=== PATIENT | male | born 1975 | race Caucasian/White ===

== ENCOUNTER 2016-08-01 14:58 | Outpatient (CLI) | payer OTHER | END 2016-08-01 14:59 | disposition home or self-care (01) | DX: Z13.9 Encounter for screening, unspecified (principal); Z13.89 Encounter for screening for other disorder; Z13.0 Encounter for screening for diseases of the blood and blood-forming organs and certain disorders involving the immune mechanism ==

== ENCOUNTER 2016-08-10 14:48 | Outpatient (CLI) | payer OTHER | END 2016-08-10 14:49 | disposition home or self-care (01) | DX: S83.242A Other tear of medial meniscus, current injury, left knee, initial encounter (principal); M23.92 Unspecified internal derangement of left knee ==

== ENCOUNTER 2018-04-11 12:42 | Day surgery (SDC) | payer OTHER ==
[2018-04-11] MEDS ORDERED: LACTATED RINGERS 1,000 ML IV ONE (13:47)
--- NOTE | 2018-04-11 14:25 | ANESTHESIA ---
Pre-Anesthesia VS, & Labs - Diagnosis Chronic diarrhea - Procedure Colonscopy Vital Signs: Temp Pulse Resp BP Pulse Ox 36.9 C 63 18 135/91 H 98 04/11/18 13:30 04/11/18 13:30 04/11/18 13:30 04/11/18 13:30 04/11/18 13:30 Height 6 ft 1 in Weight (kg) 96.5 kg - NPO >8 hours - Lab Results Lab results reviewed: No Home Medications and Allergies Allergies/Adverse Reactions: Allergies Allergy/AdvReac Type Severity Reaction Status Date / Time No Known Drug Allergies Allergy Verified 04/10/18 13:47 Anes History & Medical History - Anesthetic History Anesthesia Complications: reports: No previous complications Family history of Anesthesia Complications: Denies Family history of Malignant Hyperthermia: Denies - Medical History Cardiovascular: reports: None Pulmonary: reports: None, Asthma Gastrointestinal: reports: None Urinary: reports: None Neuro: reports: None Musculoskeletal: reports: None Endocrine/Autoimmune: reports: None Blood Disorders: reports: None Skin: reports: None Smoking Status: Current some day smoker (30 pack year history) Psychosocial: reports: No issues indicated - Surgical History Orthopedic: ACL reconstruction Exam General: Alert, Oriented x3 Dental: Other (some missing) Mouth Opening: Greater than 4 Fingerbreadths Neck Mobility: Normal Mallampati classification: I Thyromental Distance: greater than 6 cm Respiratory: Lungs clear Cardiovascular: Regular rate, No murmurs Neurological: Normal speech Mental/Cognitive Status: Alert/Oriented X3, Normal for patient Cognitive Status: Within normal limits Plan Anesthesia Type: Total IV Consent for Procedure(s) Verified and Reviewed: Yes Code Status: Attempt Resuscitation ASA classification: 2-Mild systemic disease Is this case an emergency?: No
[2018-04-11] MEDS ORDERED: LIDOCAINE-MPF 2% 5 ML VIAL IM ONE (15:05)
[2018-04-11] MEDS ORDERED: MIDAZOLAM 2 MG/2 ML VIAL IVP ONE (15:05)
[2018-04-11] MEDS ORDERED: PROPOFOL 1000 MG/100 ML IV ONE (15:05)
[2018-04-11 15:45] VITALS: BP 120/86
== END 2018-04-11 12:43 | disposition home or self-care (01) ==
LOC: SDS 12:42
PROVIDERS: ATTEND Internal Medicine Gastroenterology
PROC: 0DBF8ZX Excision of Right Large Intestine, Via Natural or Artificial Opening Endoscopic, Diagnostic (ICD-10-PCS; 2018-04-11)
PROC: 0DBG8ZX Excision of Left Large Intestine, Via Natural or Artificial Opening Endoscopic, Diagnostic (ICD-10-PCS; principal; 2018-04-11 14:45)
DX: K52.9 Noninfective gastroenteritis and colitis, unspecified (principal); F10.20 Alcohol dependence, uncomplicated; I10 Essential (primary) hypertension; J45.909 Unspecified asthma, uncomplicated; E66.9 Obesity, unspecified; F17.210 Nicotine dependence, cigarettes, uncomplicated; Z68.30 Body mass index [BMI] 30.0-30.9, adult; Z83.71 Family history of colonic polyps
CPT/HCPCS: 45380; J7120

== ENCOUNTER 2018-05-09 15:21 | Outpatient (CLI) | payer OTHER | END 2018-05-09 15:22 | disposition home or self-care (01) | LOC: LAB.F 15:21 | PROVIDERS: ATTEND Internal Medicine Gastroenterology | DX: K52.9 Noninfective gastroenteritis and colitis, unspecified (principal) | CPT/HCPCS: 36415; 82784; 83516 ==

== ENCOUNTER 2018-06-02 09:51 | Emergency (ER) | payer OTHER ==
[2018-06-02] MEDS ORDERED: DEXAMETHASONE 10 MG/ML VIAL PO STA (10:37)
[2018-06-02] MEDS ORDERED: KETOROLAC 60 MG/2 ML VIAL IM STA (10:38)
--- NOTE | 2018-06-02 10:40 | ED Physician Documentation ---
PD HPI BACK PAIN - Stated complaint Stated Complaint: LEFT LEG/HIP/ANKLE PX - Chief complaint Chief Complaint: Ext Problem - History obtained from History obtained from: Patient - History of Present Illness Timing - onset: Yesterday Timing - duration: Days (1) Timing - details: Abrupt onset, Still present Location: Lower, Left Quality: Pain, Spasm, Sharp, Similar to prior episodes Associated symptoms: Numbness. 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 The patient states that he has had a problem with his sciatica on and off as he has done this work long-term. He has been having a problem with his sciatica for the past week and yesterday when he was doing a transfer here a pop in his back and since that time he has had severe specific pain in the left lower back with pain radiating down the left leg. Review of Systems Constitutional: reports: Fatigue. denies: Fever, Chills Ears: denies: Ear pain Throat: denies: Sore throat Cardiac: denies: Palpitations Respiratory: denies: Cough : denies: Dysuria Skin: denies: Rash Musculoskeletal: reports: Back pain Neurologic: reports: Numbness. denies: Generalized weakness, Focal weakness PD PAST MEDICAL HISTORY - Past Medical History Cardiovascular: None Respiratory: None, Asthma Neuro: None Endocrine/Autoimmune: None GI: None : None HEENT: None Psych: None Musculoskeletal: None Derm: None - Past Surgical History Past Surgical History: Yes Ortho: ACL reconstruction, Other - Present Medications Home Medications: Ambulatory Orders Medication Instructions Recorded Confirmed Cyclobenzaprine [Flexeril] 10 mg PO TID PRN #20 tablet 06/02/18 Hydrocodone/Acetaminophen 1 - 2 each PO Q6H PRN #14 tablet 06/02/18 [Hydrocodon-Acetaminophen 5-325] - Allergies Allergies/Adverse Reactions: Allergies Allergy/AdvReac Type Severity Reaction Status Date / Time bee venom protein (honey bee) Allergy Anaphylaxis Verified 06/02/18 10:00 - Social History Does the pt smoke?: Yes Smoking Status: Current every day smoker Does the pt drink ETOH?: Yes ETOH Use: Beer Does the pt have substance abuse?: No - Immunizations Immunizations are current?: Yes PD ED PE NORMAL - Vitals Vital signs reviewed: Yes (hypertensive ) - General General: Alert and oriented X 3, No acute distress, Well developed/nourished - HEENT HEENT: Atraumatic, PERRL, EOMI - Respiratory Respiratory: No respiratory distress - Back Back: No CVA TTP, No spinal TTP, Other (There is paraspinous muscle tenderness to the lower lumbar spine on the left lower side extending into the sicatic notch. ) - Derm Derm: Normal color, Warm and dry, No rash - Extremities Extremities: No deformity, No edema - Neuro Neuro: Alert and oriented X 3, paper machine tender 2-12 intact, No motor deficit, Normal speech, Other (There is subjective numbness to the lateral plantar aspect of the left foot. ) Eye Opening: Spontaneous Motor: Obeys Commands Verbal: Oriented GCS Score: 15 - Psych Psych: Normal mood, Normal affect Results - Vitals Vitals: Vital Signs - 24 hr 06/02/18 09:57 Temperature 36.5 C Heart Rate 100 Respiratory 18 Rate Blood Pressure 139/90 H O2 Saturation 99 Oxygen O2 Source Room air PD MEDICAL DECISION MAKING - ED course Complexity details: considered differential, d/w patient ED course: 42-year-old male who works as a caregiver has acute sciatica. He is administered Dexamethasone 10 mg and Toradol 60mg IM. We will place him on some pain medication and muscle relaxant. Departure - Departure Disposition: 01 Home, Self Care Clinical Impression: Sciatica Qualifiers: Laterality: left Qualified Code(s): M54.32 - Sciatica, left side Condition: Stable Instructions: ED Sciatica Follow-Up: Sixto Enrique MD [Primary Care Provider] - Prescriptions: Cyclobenzaprine [Flexeril] 10 mg PO TID PRN #20 tablet PRN Reason: Spasms Hydrocodone/Acetaminophen [Hydrocodon-Acetaminophen 5-325] 1 - 2 each PO Q6H PRN #14 tablet PRN Reason: pain Forms: Activity restrictions
[2018-06-02] MEDS ORDERED: CHERRY SYRUP 10 ML UDC PO ONE (10:52)
[2018-06-02 11:21] VITALS: BP 138/98
== END 2018-06-02 11:21 | disposition home or self-care (01) ==
LOC: ED 09:51
DX: M54.32 Sciatica, left side (principal); F17.200 Nicotine dependence, unspecified, uncomplicated; X50.1XXA Overexertion from prolonged static or awkward postures, initial encounter; Y93.F2 Activity, caregiving, lifting; Y99.0 Civilian activity done for income or pay
CPT/HCPCS: 1040M; 96372; 99283; A9270

== ENCOUNTER 2018-06-03 13:55 | Emergency (ER) | payer OTHER ==
--- NOTE | 2018-06-03 14:58 | ED Physician Documentation ---
PD HPI BACK PAIN - Stated complaint Stated Complaint: LOW BACK PX - Chief complaint Chief Complaint: Back Pain - History obtained from History obtained from: Patient - History of Present Illness Timing - onset: How many days ago (few) Timing - duration: Days (history of low back pain with radiation to left leg. This has been worse for few days without particular new injury.) Timing - details: Gradual onset, Still present Location: Lower, Left Quality: Pain, Spasm Associated symptoms: Numbness (at times left anterolateral lower leg and lateral foot), Incontinent of urine. 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 Has had increased back pain due to that. He says there are not other caregivers to work with this person, so he is having to continue the heavy back work.). No: Trauma Similar symptoms before: Diagnosis (disc problem with sciatic. Has not had recent back imaging nor specialist eval. Has had rn acute care in the past.) Recently seen: Emergency Dept (given Rx for some pain meds and muscle relaxants which he says are not helping with the pain. Did not get much improvement with the Toradol last evening.) Review of Systems Constitutional: denies: Fever, Myalgias Nose: denies: Rhinorrhea / runny nose, Congestion Throat: denies: Sore throat Respiratory: denies: Cough : denies: Incontinent Musculoskeletal: reports: Back pain. denies: Neck pain Neurologic: denies: Generalized weakness, Focal weakness PD PAST MEDICAL HISTORY - Past Medical History Cardiovascular: None Respiratory: None, Asthma Neuro: None Endocrine/Autoimmune: None GI: None : None HEENT: None Psych: None Musculoskeletal: None Derm: None - Past Surgical History Past Surgical History: Yes Ortho: ACL reconstruction, Other - Present Medications Home Medications: Ambulatory Orders Medication Instructions Recorded Confirmed Cyclobenzaprine [Flexeril] 10 mg PO TID PRN #20 tablet 06/02/18 Hydrocodone/Acetaminophen 1 - 2 each PO Q6H PRN #14 tablet 06/02/18 [Hydrocodon-Acetaminophen 5-325] Dexamethasone [Decadron] 4 mg PO DAILY #5 tablet 01/28/19 Naproxen 500 mg PO BID #20 tablet 06/03/18 Oxycodone HCl/Acetaminophen 1 each PO Q6H PRN #25 tablet 06/03/18 [Percocet 7.5-325 mg Tablet] diazePAM [Diazepam] 5 mg PO TID PRN #20 tablet 06/03/18 - Allergies Allergies/Adverse Reactions: Allergies Allergy/AdvReac Type Severity Reaction Status Date / Time bee venom protein (honey bee) Allergy Anaphylaxis Verified 06/03/18 14:07 - Social History Does the pt smoke?: Yes Smoking Status: Current every day smoker Does the pt drink ETOH?: Yes Does the pt have substance abuse?: No - Immunizations Immunizations are current?: Yes PD ED PE NORMAL - Vitals Vital signs reviewed: Yes - General General: Alert and oriented X 3, Well developed/nourished, Other (appears in pain, guarded ROM of the back. ) - Cardiac Cardiac: RRR, No murmur - Respiratory Respiratory: Clear bilaterally - Abdomen Abdomen: Soft, Non tender - Back Back: No spinal TTP - Derm Derm: Normal color, Warm and dry, No rash - Extremities Extremities: Other (tender lateral lumbar area muscles without deformity. ) - Neuro Neuro: Alert and oriented X 3, No motor deficit, No sensory deficit, Normal speech, Other (normal knee reflexes. ) Results - Vitals Vitals: Vital Signs - 24 hr 06/03/18 06/03/18 14:05 16:19 Temperature 36.8 C 37.1 C Heart Rate 99 73 Respiratory 16 16 Rate Blood Pressure 137/87 H 133/87 H O2 Saturation 97 98 Oxygen O2 Source Room air PD MEDICAL DECISION MAKING - ED course Complexity details: considered differential (no red flags - has prior sciatic radiation of pain and is currently worse than usual. ), d/w patient Departure - Departure Disposition: Home, Self Care Clinical Impression: Low back pain Qualifiers: Chronicity: acute Back pain laterality: left Sciatica presence: with sciatica Sciatica laterality: sciatica of left side Qualified Code(s): M54.42 - Lumbago with sciatica, left side Condition: Stable Record reviewed to determine appropriate education?: Yes Instructions: ED Sprain Strain Lumbar, ED Sciatica Follow-Up: Sixto Enrique MD [Primary Care Provider] - [facility] [Provider Group] Prescriptions: Dexamethasone [Decadron] 4 mg PO DAILY #5 tablet diazePAM [Diazepam] 5 mg PO TID PRN #20 tablet PRN Reason: Spasms Naproxen 500 mg PO BID #20 tablet Oxycodone HCl/Acetaminophen [Percocet 7.5-325 mg Tablet] 1 each PO Q6H PRN #25 tablet PRN Reason: Pain Comments: Heat and gentle stretching and range of motion. Naproxen twice daily anti- inflammatory. Decadron steroid anti-inflammatory daily for 5 more days. He can use stronger medications of Percocet for pain and diazepam for spasms over the next several days to week. Consider adding physical modalities such as chiropractic or physical therapy. Check with the chiropractors to see if they accept L&I reimbursement. Commonly they do. You need to start physical therapy initiated through your primary care or orthopedics as it generally is not accepted from the ER. Have a day or 2 of work if you can although limited lifting and range of motion as allowable. Forms: Activity restrictions Discharge Date/Time: 06/03/18 16:27
[2018-06-03] MEDS ORDERED: HYDROmorphone 1 MG/ML CARPUJECT IM STA (15:16)
[2018-06-03] MEDS ORDERED: IBUPROFEN 600 MG TABLET PO STA (15:16)
[2018-06-03] MEDS ORDERED: diazePAM 5 MG TABLET PO STA (15:16)
[2018-06-03 16:21] VITALS: BP 133/87
== END 2018-06-03 16:27 | disposition home or self-care (01) ==
LOC: ED 13:55
DX: M54.42 Lumbago with sciatica, left side (principal); X50.1XXA Overexertion from prolonged static or awkward postures, initial encounter; X50.0XXA Overexertion from strenuous movement or load, initial encounter; Y93.F2 Activity, caregiving, lifting; Y99.0 Civilian activity done for income or pay; F17.200 Nicotine dependence, unspecified, uncomplicated
CPT/HCPCS: 96372; 99283; A9270; J1170

== ENCOUNTER 2021-09-21 15:08 | Outpatient (CLI) | payer OTHER ==
[2021-09-21 16:02] VITALS: BP 123/79
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
== END 2021-09-21 15:09 | disposition home or self-care (01) ==
LOC: SC 15:08
PROVIDERS: ATTEND Nurse Practitioner Family
DX: R06.81 Apnea, not elsewhere classified (principal); R06.83 Snoring; G47.8 Other sleep disorders; R41.89 Other symptoms and signs involving cognitive functions and awareness; E66.9 Obesity, unspecified; Z68.30 Body mass index [BMI] 30.0-30.9, adult
CPT/HCPCS: 99203; 99212

== ENCOUNTER 2021-10-10 20:19 | Outpatient (CLI) | payer OTHER | END 2021-10-10 20:20 | disposition home or self-care (01) | LOC: SC 20:19 | PROVIDERS: ATTEND Nurse Practitioner Family | DX: G47.33 Obstructive sleep apnea (adult) (pediatric) (principal); G47.61 Periodic limb movement disorder | CPT/HCPCS: 95810 ==

== ENCOUNTER 2021-10-31 14:57 | Outpatient (CLI) | payer OTHER ==
[2021-10-31 23:22] VITALS: BP 131/84
--- NOTE | 2021-10-31 23:22 | SLEEP CARE CONSULTATION ---
Information from patient questionnaire entered by Payton San MA. I have reviewed and concur with the information entered by Payton San MA. This document represents the service I personally performed and the decisions made by me, Mayo Fleming MD, [facility]. History of Present Illness Service Date and Time: 10/31/2021 1457 Initial [place] Sleepiness Scale score: 20 (09/2021) Additional HPI information: Mr. Sims returned for follow up of the sleep study he had on 10-10-21. The polysomnography showed that the patient had reduced sleep efficiency due to frequent awakenings after the sleep onset. The sleep architecture was abnormal for sleep fragmentation and reduced amount of time spent in REM sleep. Respiratory monitoring showed mild obstructive sleep apnea-hypopnea (AHI = 6.2) associated with frequent arousals, oxyhemoglobin desaturation and mild hypoxia (kapil oxygen saturation of 81%). The respiratory events occurred independently of sleep stage and body position (supine AHI = 4.5; non-supine = 8.26). Snore was light to moderate in intensity. There was moderate periodic leg movement of sleep not contributing to the sleep fragmentation. Cardiac rhythm was normal sinus rhythm without significant arrhythmia. No abnormal behavior (parasomnia) observed during the night. The patient was informed of these findings. I explained to him the pathophysiology behind obstructive sleep apnea. We then spent quite a bit of time discussing different treatment options. For mild obstructive sleep apnea, surgery and oral appliance are alternatives to nasal CPAP therapy but in moderate or severe cases, nasal CPAP is the most effective and reliable treatment. Weight loss in an obese individual is strongly recommended. After some discussion, he opted to go with the nasal CPAP therapy. I explained to him how CPAP machine works and what to expect when using the machine. He is encouraged to use CPAP every night especially in the first 2 to 3 nights in order to get used to it. He should call his CPAP supplier or me to discuss any mechanical problem that may occur. If he snores or feels like he is not getting enough air from the machine, he should notify me and I will increase the pressure. Sleep Study - Results Type of Sleep Study: Polysomnography (F/U POLY, 10/10/2021 [facility], POS,) Prior sleep studies: No Allergies and Home Medications Drug allergies reviewed: Yes Home medication list reviewed: Yes Allergy and home medication list: Allergies bee venom protein (honey bee) Allergy (Verified 06/03/18 14:07) Anaphylaxis Review of Systems Review of systems same as previous: Yes Physical Exam Vital signs obtained and entered by: SHEREEN SANTIAGO Blood Pressure: 131/84 (RESP 22, PULSE 96, LEFT,) Heart Rate: 94 O2 Saturation: 99 (PAPER MASK) Height: 6 ft 1 in Weight: 230 lb (CLOTHE) Body Mass Index: 30.3 BMI Classification: Obese Impression and Plan IMPRESSION: 1. Obstructive Sleep Apnea-Hypopnea Syndrome, mild, associated with mild hypoxemia and sleep fragmentation. Possibly, this is the cause of the patients symptoms of unrefreshed sleep, and excessive daytime sleepiness. As mentioned above, the patient will be started on autoCPAP set between 5 and 15 cmH2O. Depending on his response and compliance he may be brought back for an o vernight CPAP titration study. PLAN: 1. Prescription made for an autoCPAP, heated humidifier, and related supplies. 2. Return for follow up after one month of using the CPAP. Prescriptions: Auto CPAP Follow up with Sleep Care in: 1-2 months Visit Type: In Office Time Spent with Patient (minutes): 15 Provider Statement: I spent 100% of the Face to Face Visit with the patient with greater than 50% spent counseling the patient and coordination of care.
== END 2021-10-31 14:58 | disposition home or self-care (01) ==
LOC: SC 14:57
PROVIDERS: ATTEND Internal Medicine Pulmonary Disease
DX: G47.33 Obstructive sleep apnea (adult) (pediatric) (principal); E66.9 Obesity, unspecified; Z68.30 Body mass index [BMI] 30.0-30.9, adult
CPT/HCPCS: 99212

== ENCOUNTER 2022-02-14 14:44 | Outpatient (CLI) | payer MEDICAID, OTHER ==
--- NOTE | 2022-02-14 17:44 | XRAY Report ---
PROCEDURE: Shoulder 2 View LT INDICATIONS: L SHOULDER PX TECHNIQUE: 2 views of the shoulder were acquired. COMPARISON: None. FINDINGS: Bones: There is separation of the acromioclavicular joint measuring up to 8.6 mm. No significant elev ation of the distal clavicle. Moderate glenohumeral joint space loss. There is slight flattening of t he glenoid fossa. Apparent mild superior subluxation of the humeral head in the glenoid fossa on the given images. No suspicious bony lesions. Visualized ribs appear intact. Soft tissues: Small calcification is seen immediately inferior to the glenoid fossa measuring about 4 mm. IMPRESSION: 1. Superior subluxation of the humeral head may indicate chronic rotator cuff tear. 2. Calcification caudal to the glenoid may be a bony Bankart lesion indicating prior humeral joint di slocation. 3. Type II AC joint separation. Reviewed by: Sonali Shen MD on 02/14/2022 5:43 PM PDT Approved by: Sonali Shen MD on 02/14/2022 5:43 PM PDT Station ID: [id number]
== END 2022-02-14 23:59 | disposition home or self-care (01) ==
LOC: DI.N 14:44
PROVIDERS: ATTEND Physician Assistant
DX: S43.002A Unspecified subluxation of left shoulder joint, initial encounter (principal); S43.102A Unspecified dislocation of left acromioclavicular joint, initial encounter

== ENCOUNTER 2022-02-16 08:39 | Emergency (ER) | payer MEDICAID, OTHER ==
[2022-02-16 08:49] VITALS: BP 152/108
--- NOTE | 2022-02-16 10:15 | ED Physician Documentation ---
PD HPI UPPER EXT INJURY - Stated complaint Stated Complaint: LT SHOULDER INJURY - Chief complaint Chief Complaint: Ext Problem - History obtained from History obtained from: Patient - History of Present Illness Location: Left, Shoulder Type of injury: Other (has chronically dislocating shoulders) Where injury occurred: Home Timing - onset: How many months ago (2) Timing - duration: Months (2) Timing - details: Gradual onset, Still present, Waxing and waning Improved by: Rest, Immobilization Worsened by: Moving, Palpating Associated symptoms: Numbness (to the hand on the left). 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 He has chronically dislocating shoulders and he has had a problem earlier in the year with his right shoulder giving him a lot of pain he eventually was able to work that out and shortly after he got that under control the left shoulder began to give him a problem. He has had a problem now is his left shoulder for about 2 months. He went into the urgent care and they were able to make a referral to orthopedics but his insurance would not honor the referral as it did not come from his primary. He is currently without a primary after change in insurance. He is currently on state insurance. He is unable to get into see [place] care doctor [place] and has an appointment next month for a primary care in [place] with the hope of getting a referral to orthopedics. The patient is currently having difficulty with sleeping he has had symptoms of this similar previously. He had an x-ray done of his shoulder yesterday which did demonstrate pathology including : Superior subluxation of the humeral head and a bony [place] lesion as well as a type II AC separation. The patient notes that he is not currently otherwise ill. Review of Systems Constitutional: denies: Fever Ears: denies: Ear pain Nose: denies: Congestion Throat: denies: Sore throat Cardiac: denies: Chest pain / pressure Respiratory: denies: Cough GI: denies: Vomiting PD PAST MEDICAL HISTORY - Past Medical History Cardiovascular: None Respiratory: None, Asthma Neuro: None Endocrine/Autoimmune: None GI: None : None HEENT: None Psych: None Musculoskeletal: None Derm: None - Past Surgical History Past Surgical History: Yes Ortho: ACL reconstruction, Other - Present Medications Home Medications: Ambulatory Orders Medication Instructions Recorded Confirmed Cyclobenzaprine [Flexeril] 10 mg PO TID PRN #20 tablet 06/02/18 Hydrocodone/Acetaminophen 1 - 2 each PO Q6H PRN #14 tablet 06/02/18 [Hydrocodon-Acetaminophen 5-325] Naproxen 500 mg PO BID #20 tablet 06/03/18 Oxycodone HCl/Acetaminophen 1 each PO Q6H PRN #25 tablet 06/03/18 [Percocet 7.5-325 mg Tablet] dexAMETHasone [Decadron] 4 mg PO DAILY #5 tablet 06/03/18 diazePAM [Diazepam] 5 mg PO TID PRN #20 tablet 06/03/18 HYDROcod/ACETAM 5/325 [[place] 5/325] 1 - 2 tablet PO Q6H PRN #14 tablet 02/16/22 - Allergies Allergies/Adverse Reactions: Allergies Allergy/AdvReac Type Severity Reaction Status Date / Time bee venom protein (honey bee) Allergy Anaphylaxis Verified 02/16/22 08:49 - Social History Does the pt smoke?: Yes Smoking Status: Current every day smoker Does the pt drink ETOH?: Yes Does the pt have substance abuse?: No - Immunizations Immunizations are current?: Yes - POLST Patient has POLST: No PD ED PE NORMAL - Vitals Vital signs reviewed: Yes (Tachycardic and hypertensive) - General General: Alert and oriented X 3, No acute distress, Well developed/nourished - HEENT HEENT: Atraumatic, PERRL, EOMI - Neck Neck: Supple, no meningeal sign, No bony TTP - Respiratory Respiratory: No respiratory distress - Derm Derm: Normal color, Warm and dry - Extremities Extremities: Other (There is deformity to the left shoulder consistent with an AC separation there is a reduced duction and range of motion he is not able to get past 80 degrees of abduction.) - Neuro Neuro: Alert and oriented X 3, 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, No motor deficit, No sensory deficit, Normal speech Eye Opening: Spontaneous Motor: Obeys Commands Verbal: Oriented GCS Score: 15 - Psych Psych: Normal mood, Normal affect Results - Vitals Vitals: Vital Signs - 24 hr 02/16/22 08:44 Temperature 36.7 C Heart Rate 101 H Respiratory 18 Rate Blood Pressure 152/108 H O2 Saturation 98 Oxygen O2 Source Room air PD MEDICAL DECISION MAKING - ED course Complexity details: reviewed old records, reviewed results, considered differential, d/w patient ED course: 46-year-old male with chronic left shoulder pain and subluxation has not been able to get follow-up with orthopedics. Today we will temporize his treatment with administration of dexamethasone and I will provide a short course of pain medication as well as referral to a primary care doctor who may be able to give him a referral to orthopedics sooner than next month. Departure - Departure Disposition: 01 Home, Self Care Clinical Impression: Shoulder pain, acute Qualifiers: Laterality: left Qualified Code(s): M25.512 - Pain in left shoulder Condition: Stable Instructions: ED Tendinitis Rotator Cuff, ED Shoulder Pain [facility] Follow-Up: Lenora Coy PA-C [Provider Admit Priv/Credential] - Prescriptions: HYDROcod/ACETAM 5/325 [[place] 5/325] 1 - 2 tablet PO Q6H PRN #14 tablet PRN Reason: Pain Comments: Frank, today it looks like you have chronic shoulder pain from chronic subluxation and prior injury. A follow-up with orthopedics is indicated. I have given you the name of a primary care doctor in [place] who may be able to assist with a referral. Call their office for an appointment. Today we have given you a dose of dexamethasone which should help a bit with your general symptoms and I have E scribed some hydrocodone to the [employer] [facility] in [place]. Wear the sling for comfort and do not forget to remove your arm from the sling frequently and do a range of motion to prevent frozen shoulder.
== END 2022-02-16 10:51 | disposition home or self-care (01) ==
LOC: ED 08:39
DX: M25.512 Pain in left shoulder (principal); G89.29 Other chronic pain; F17.200 Nicotine dependence, unspecified, uncomplicated
CPT/HCPCS: 99283; 99284

== ENCOUNTER 2022-12-19 10:13 | Emergency (ER) | payer MEDICAID ==
[2022-12-19 10:41] LABS: BASOPHILS % (AUTO) 0.6 %; EOSINOPHILS # (AUTO) 0.3 10^3/uL (0.0-0.7); EOSINOPHILS % (AUTO) 3.5 %; HCT - HEMATOCRIT 43.9 % (42.0-52.0); HGB - HEMOGLOBIN 14.7 g/dL (14.0-18.0); LYMPHOCYTES # (AUTO) 1.8 10^3/uL (1.5-3.5); LYMPHOCYTES % (AUTO) 24.7 %; MEAN CORPUSCULAR HEMOGLOBIN 32.7 pg (27.0-31.0); MEAN CORPUSCULAR HGB CONC 33.5 g/dL (32.0-36.0); MEAN CORPUSCULAR VOLUME 97.8 fL (80.0-94.0); MONOCYTES # (AUTO) 0.5 10^3/uL (0.0-1.0); MONOCYTES % (AUTO) 6.8 %; NEUTROPHILS # (AUTO) 4.6 10^3/uL (1.5-6.6); PLT - PLATELET COUNT 208 10^3/uL (130-450); RED BLOOD COUNT 4.49 10^6/uL (4.70-6.10); RED CELL DISTRIBUTION WIDTH 11.9 % (12.0-15.0); WHITE BLOOD COUNT 7.2 x10^3/uL (4.8-10.8)
[2022-12-19 10:53] LABS: ALBUMIN 4.4 g/dL (3.2-5.5); ALBUMIN/GLOBULIN RATIO 1.5 (1.0-2.2); BILIRUBIN,TOTAL 0.9 mg/dL (0.2-1.0); CALCIUM 9.4 mg/dL (8.5-10.3); CREATININE 0.9 mg/dL (0.6-1.3); POTASSIUM 3.8 mmol/L (3.5-4.5); TOTAL PROTEIN 7.3 g/dL (6.4-8.9)
[2022-12-19 11:00] LABS: TROPONIN I HIGH SENSITIVITY 4.1 ng/L (2.3-19.7)
[2022-12-19] MEDS ORDERED: KETOROLAC 30 MG/ML VIAL IM STA (11:11)
--- NOTE | 2022-12-19 11:14 | ED Physician Documentation ---
History of Present Illness - Stated complaint Stated Complaint: CHEST PX,SOA - Chief complaint Chief Complaint: Cardiac - Additonal information Additional information: 47-year-old male presents emergency department for evaluation of left-sided chest wall rib wall pain. Reports a fall 10 days ago onto a radiant heater. He thinks he may have broken his ribs then. Since then he has taken it easy but yesterday he did a lot of weed trimming and this morning he started pulling up the boards on decking. Immediately thereafter he began having left-sided rib wall pain and some mild shortness of air. I am he denies any hemoptysis. He has no previous known history of FL, DVT or PE. He is not anticoagulated. He does have a history of hypertension for which she reports compliance with his medications. He smokes 1 pack/day tobacco and drinks a sixpack of beer nightly. Review of Systems Constitutional: reports: Reviewed and negative Cardiac: reports: Chest pain / pressure. denies: Pedal edema Respiratory: reports: Dyspnea, Wheezing. denies: Cough, Hemoptysis, Reviewed and negative GI: reports: Reviewed and negative : reports: Reviewed and negative Skin: reports: Reviewed and negative PD PAST MEDICAL HISTORY - Past Medical History Cardiovascular: None Respiratory: None, Asthma Neuro: None Endocrine/Autoimmune: None GI: None : None HEENT: None Psych: None Musculoskeletal: None Derm: None - Past Surgical History Past Surgical History: Yes Ortho: ACL reconstruction, Other - Present Medications Home Medications: Ambulatory Orders Medication Instructions Recorded Confirmed Cyclobenzaprine [Flexeril] 10 mg PO TID PRN #20 tablet 06/02/18 Hydrocodone/Acetaminophen 1 - 2 each PO Q6H PRN #14 tablet 06/02/18 [Hydrocodon-Acetaminophen 5-325] Naproxen 500 mg PO BID #20 tablet 06/03/18 Oxycodone HCl/Acetaminophen 1 each PO Q6H PRN #25 tablet 06/03/18 [Percocet 7.5-325 mg Tablet] dexAMETHasone [Decadron] 4 mg PO DAILY #5 tablet 06/03/18 diazePAM [Diazepam] 5 mg PO TID PRN #20 tablet 06/03/18 HYDROcod/ACETAM 5/325 [[place] 5/325] 1 - 2 tablet PO Q6H PRN #14 tablet 02/16/22 - Allergies Allergies/Adverse Reactions: Allergies Allergy/AdvReac Type Severity Reaction Status Date / Time bee venom protein (honey bee) Allergy Anaphylaxis Verified 02/16/22 08:49 - Social History Does the pt smoke?: Yes Smoking Status: Current every day smoker Does the pt drink ETOH?: Yes Does the pt have substance abuse?: No - Immunizations Immunizations are current?: Yes - POLST Patient has POLST: No PD ED PE NORMAL - General General: Alert and oriented X 3, No acute distress, Well developed/nourished - HEENT HEENT: Atraumatic - Neck Neck: Supple, no meningeal sign - Cardiac Cardiac: RRR, No murmur - Respiratory Respiratory: No respiratory distress. No: Clear bilaterally (Faint scattered expiratory wheeze. 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 Relevant findings are: Rate: Rate (enter#) (84) Rhythm: NSR [place]: Normal Intervals: Normal GA QRS: Normal Ischemia: Normal ST segments Compare to prior EKG: Old EKG unavailable Computer interpretation: Agree with computer - Labs Labs: Laboratory Tests 12/19/22 12/19/22 10:35 10:35 WBC 7.2 RBC 4.49 L Hgb 14.7 Hct 43.9 MCV 97.8 H MCH 32.7 H MCHC 33.5 RDW 11.9 L Plt Count 208 MPV 9.0 Neut # (Auto) 4.6 Lymph # (Auto) 1.8 Wilson # (Auto) 0.5 Eos # (Auto) 0.3 Baso # (Auto) 0.0 Absolute Nucleated RBC 0.00 Nucleated RBC % 0.0 Sodium 136 Potassium 3.8 Chloride 102 Carbon Dioxide 26 Anion Gap 8.0 BUN 13 Creatinine 0.9 Estimated GFR (MDRD) 90 Glucose 103 Calcium 9.4 Total Bilirubin 0.9 AST 27 ALT 40 Alkaline Phosphatase 92 Troponin I High Sens 4.1 Total Protein 7.3 Albumin 4.4 Globulin 2.9 Albumin/Globulin Ratio 1.5 Lipase 16 - Rads (name of study) cxr Relevant Findings:: Final report received (No acute radiographic abnormality of this portable radiograph.) ribs xr Relevant Findings:: Final report received (Minimally nondisplaced rib fractures at the location of the BB marker.) PD Medical Decision Making - ED course Complexity details: reviewed results, re-evaluated patient, considered differential, d/w patient ED course: 47-year-old male presents emergency department for evaluation of acute left lateral rib wall pain. Reports a fall 10 days ago. He thought at that time he might of fractured a rib but did not think much of it. When he returned to work yesterday and then again this morning he found that he had exquisite pain especially with movement. Patient does have a history of hypertension. He also has a history of tobacco and heavy alcohol use. Here in the emergency department and initial single view chest x-ray showed no signs of pneumonia, pneumothorax cardiomegaly or pleural effusion. An EKG is interpreted by myself was nonischemic. We did obtain CBC, electrolytes and a troponin and per my interpretation no acute worrisome findings. Negative troponin and unremarkable EKG make ACS unlikely. Patient was exquisitely tender with the left lower lateral rib wall palpation. 2 view x-ray of these localized ribs does show a nondisplaced left ninth rib fracture. I discussed this finding with the patient. I recommended Tylenol and Motrin for discomfort. I did offer narcotic analgesia on discharge but he declined. Given his full pulmonary excursion with auscultation, no lack of hypoxia and isolated single rib fracture he would not need to be admitted to the hospital though we did discuss the usual emergent return precautions for failure of symptoms to resolve or markedly worsen. Departure - Departure Disposition: 01 Home, Self Care Clinical Impression: Left rib fracture Qualifiers: Encounter type: initial encounter Rib fracture type: single rib Fracture type: closed Qualified Code(s): S22.32XA - Fracture of one rib, left side, initial encounter for closed fracture Condition: Stable Record reviewed to determine appropriate education?: Yes Instructions: ED Fx Rib Comments: You do have a fracture of the left lateral ninth rib. It is nondisplaced. In general rib fractures take 4 to 6 weeks to heal. I recommend that you take Tylenol 500 mg 3 times a day or alternate with naproxen 225 mg taken twice a day. You can use Salonpas patches over your lateral ribs that can help reduce pain. The biggest risk with rib fractures is developing atelectasis or pneumonia because it hurts to take a deep breath. Please make sure that you are taking several long deep full breaths each hour. If at any point you find that you develop fevers, have severe chest pain, have a productive cough or bloody sputum or feel that your symptoms are worsening you do need to return immediately to the ER. Forms: PCP List
--- NOTE | 2022-12-19 11:27 | XRAY Report ---
PROCEDURE: Chest 1 View X-Ray INDICATIONS: Chest pain TECHNIQUE: One view of the chest was acquired. COMPARISON: None. FINDINGS: Surgical changes and devices: None. Lungs and pleura: No pleural effusions or pneumothorax. Lungs are clear. Mediastinum: Mediastinal contours appear normal. Heart size is normal. Bones and chest wall: No suspicious bony lesions. Overlying soft tissues appear unremarkable. IMPRESSION: No acute radiographic abnormality on this portable radiograph. Reviewed by: Trey Stewart MD on 12/19/2022 11:26 AM PDT Approved by: Trey Stewart MD on 12/19/2022 11:26 AM PDT Station ID: [id number]
[2022-12-19 12:45] VITALS: BP 139/109; O2SAT 98
--- NOTE | 2022-12-19 12:47 | XRAY Report ---
PROCEDURE: Ribs 2 View LT INDICATIONS: fall 10 days ago lateral rib pain TECHNIQUE: 2 views of the right ribs were acquired. COMPARISON: None. FINDINGS: Bones: Scattered degenerative changes. Minimally displaced fracture of the right lateral ninth rib. T here may also be a nondisplaced fracture of the right lateral eighth rib. These correspond to the loc ation of the BB marker. Soft tissues: No suspicious calcifications. IMPRESSION: Minimally/nondisplaced rib fractures at the location of the BB marker. Reviewed by: Trey Stewart MD on 12/19/2022 12:46 PM PDT Approved by: Trey Stewart MD on 12/19/2022 12:46 PM PDT Station ID: [id number]
== END 2022-12-19 13:03 | disposition home or self-care (01) ==
LOC: ED 10:13
DX: S22.32XA Fracture of one rib, left side, initial encounter for closed fracture (principal); W19.XXXA Unspecified fall, initial encounter; F17.210 Nicotine dependence, cigarettes, uncomplicated; Z79.899 Other long term (current) drug therapy
CPT/HCPCS: 36415; 80053; 83690; 84484; 85025; 93005; 96372; 99283; 99284

== ENCOUNTER 2024-01-14 06:57 | Emergency (ER) | payer MEDICAID ==
--- NOTE | 2024-01-14 07:28 | ED Physician Documentation ---
PD HPI HEENT - Stated complaint Stated Complaint: LT SIDE JAW PX - Chief complaint Chief Complaint: Heent - History obtained from History obtained from: Patient - Additional information Additional information: On Sunday, 3 days ago he had wisdom tooth removal at [facility]. He feels like there is a piece of bone protruding from the left mandibular surgical site and causing a headache on that side. He was on antibiotics but is no longer. PD PAST MEDICAL HISTORY - Past Medical History Past Medical History: Yes Cardiovascular: None Respiratory: None, Asthma Neuro: None Endocrine/Autoimmune: None GI: None : None HEENT: None Psych: None Musculoskeletal: None Derm: None - Past Surgical History Past Surgical History: Yes Ortho: ACL reconstruction, Other - Present Medications Home Medications: Ambulatory Orders Medication Instructions Recorded Confirmed Cyclobenzaprine [Flexeril] 10 mg PO TID PRN #20 tablet 06/02/18 Hydrocodone/Acetaminophen 1 - 2 each PO Q6H PRN #14 tablet 06/02/18 [Hydrocodon-Acetaminophen 5-325] Naproxen 500 mg PO BID #20 tablet 06/03/18 Oxycodone HCl/Acetaminophen 1 each PO Q6H PRN #25 tablet 06/03/18 [Percocet 7.5-325 mg Tablet] dexAMETHasone [Decadron] 4 mg PO DAILY #5 tablet 06/03/18 diazePAM [Diazepam] 5 mg PO TID PRN #20 tablet 06/03/18 HYDROcod/ACETAM 5/325 [[place] 5/325] 1 - 2 tablet PO Q6H PRN #14 tablet 02/16/22 Amox/Clav 875/125 [Augmentin] 1 each PO Q12H #20 tablet 01/14/24 HYDROcod/ACETAM 5/325 [[place] 5/325] 1 - 2 tab PO Q6H PRN #10 tablet 01/14/24 - Allergies Allergies/Adverse Reactions: Allergies Allergy/AdvReac Type Severity Reaction Status Date / Time bee venom protein (honey bee) Allergy Anaphylaxis Verified 01/14/24 07:20 - Social History Does the pt smoke?: Yes Smoking Status: Current every day smoker Does the pt drink ETOH?: Yes Does the pt have substance abuse?: No - Immunizations Immunizations are current?: Yes - POLST Patient has POLST: No PD ED PE NORMAL - Vitals Vital signs reviewed: Yes - General General: Alert and oriented X 3, No acute distress - HEENT HEENT: Other (No trismus, no sublingual edema. He does have exposed bone on the left mandibular jaw at the site of wisdom tooth removal.) - Neuro Neuro: Alert and oriented X 3 Results - Vitals Vitals: Vital Signs - 24 hr 01/14/24 07:17 Temperature 36.1 C L Heart Rate 90 Respiratory 20 Rate Blood Pressure 148/99 H O2 Saturation 98 Oxygen O2 Source Room air PD Medical Decision Making - ED course ED course: He presents with postoperative pain and exposed bone from wisdom tooth removal. No emergency medical condition is present but will place him on antibiotics given the exposed bone and referred to [facility]. Departure - Departure Disposition: 01 Home, Self Care Clinical Impression: Status post wisdom tooth extraction, Post-operative pain Condition: Good Record reviewed to determine appropriate education?: Yes Instructions: ED Tooth Pain Follow-Up: BHANU RANGEL [Physician No Access] - Prescriptions: Amox/Clav 875/125 [Augmentin] 1 each PO Q12H #20 tablet HYDROcod/ACETAM 5/325 [[place] 5/325] 1 - 2 tab PO Q6H PRN #10 tablet PRN Reason: Pain Comments: I sent your prescriptions electronically to [facility] in [place]. You should call the oral surgeon later in the day to see what they have to offer you as you may need a revision or just watchful waiting of your postoperative pain and exposed bone. Return for new or worsening symptoms. I am prescribing a short course of narcotic pain medication for you. These are potentially dangerous and addictive medications that should be used carefully. These medications may constipate you. Take an teym-dvj-qyosxue stool softener (docusate) twice daily with plenty of water while taking these medications. If you go 24 hours without a bowel movement, take [id number] miralax, per package instructions. Do not drink or drive while taking these medications. If you received narcotic or sedating medications while in the emergency department, do not drive for 24 hours. Store this medication in a safe, secure place and out of reach of children. It is a violation of federal law to give or sell this medication to another person or to use in a manner other than prescribed. The ED will not refill narcotic prescriptions, including prescriptions lost or stolen. To dispose of unwanted medications: 1. [facility] provides a drop box for medication in pill form only (no liquids) 8:00 am to 4:30 p.m. Sunday-Sunday in the lobby of the [facility], [address] [place] [address]. Empty pills into ziplock bag before disposal. Call [phone] for information. 2.[employer] is a free service available to all [facility] residents. Go to [email or web address] Note that many narcotic pain relievers also contain Tylenol/acetaminophen. Please ensure that your total dose of acetaminophen from all sources does not exceed 3 g (3000 mg) per day.
[2024-01-14 07:47] VITALS: BP 135/84; O2SAT 100
== END 2024-01-14 07:24 | disposition home or self-care (01) ==
LOC: ED 06:57
DX: K08.89 Other specified disorders of teeth and supporting structures (principal); F17.200 Nicotine dependence, unspecified, uncomplicated; Z98.818 Other dental procedure status
CPT/HCPCS: 99282; 99283

== ENCOUNTER 2024-01-23 08:02 | Emergency (ER) | payer MEDICAID ==
[2024-01-23 08:28] VITALS: BP 155/111; O2SAT 95
--- NOTE | 2024-01-23 09:57 | ED Physician Documentation ---
PD HPI HEENT - Stated complaint Stated Complaint: LT SIDE JAW PX - Chief complaint Chief Complaint: Heent - History obtained from History obtained from: Patient - Additional information Additional information: The patient comes to the emergency department chief complaint of left Mandibular pain around the area of his molars, after an extraction with left bone exposed. He states it is not the socket but bone along the gingival area on the lingual side. He is already been seen in the ED once for this and then went back to his oral surgeon, who said they would have to see him in a month to grind the bone down. He was given a prescription for 10 oxycodone but states they do not really help the pain and that actually, hydrocodone is better. He states he is just miserable with all the pain and does not know what to do because his oral surgery office told him he was just going to have to wait and they would not prescribe anything else. No fevers. No facial swelling. No drainage. No other complaints at this time. PD PAST MEDICAL HISTORY - Past Medical History Past Medical History: Yes Cardiovascular: None Respiratory: None, Asthma Neuro: None Endocrine/Autoimmune: None GI: None : None HEENT: None Psych: None Musculoskeletal: None Derm: None - Past Surgical History Past Surgical History: Yes Ortho: ACL reconstruction, Other - Present Medications Home Medications: Ambulatory Orders Medication Instructions Recorded Confirmed Amox/Clav 875/125 [Augmentin] 1 each PO Q12H #20 tablet 01/14/24 Budesonide/Formoterol Fumarate 1 inh INH PRN PRN 01/14/24 01/14/24 [Symbicort 80-4.5 Mcg Inhaler] Gabapentin [Neurontin] 1 cap PO TID 01/14/24 01/14/24 HYDROcod/ACETAM 5/325 [[place] 5/325] 1 - 2 tab PO Q6H PRN #10 tablet 01/14/24 Losartan Potassium [Cozaar] 1 tab PO DAILY 01/14/24 01/14/24 Meloxicam 15 mg PO DAILY 01/14/24 01/14/24 predniSONE [Prednisone] 1 tab PO DAILY 01/14/24 01/14/24 HYDROcod/ACETAM 5/325 [[place] 5/325] 1 - 2 tablet PO Q6H PRN #20 tablet 01/23/24 - Allergies Allergies/Adverse Reactions: Allergies Allergy/AdvReac Type Severity Reaction Status Date / Time bee venom protein (honey bee) Allergy Anaphylaxis Verified 01/23/24 08:08 - Social History Does the pt smoke?: Yes Smoking Status: Current every day smoker Does the pt drink ETOH?: Yes Does the pt have substance abuse?: No - Immunizations Immunizations are current?: Yes - POLST Patient has POLST: No PD ED PE NORMAL - Vitals Vital signs reviewed: Yes - General General: Alert and oriented X 3, No acute distress, Well developed/nourished - HEENT HEENT: Atraumatic, EOMI, Moist mucous membranes, Other (Open socket which appears to be in the process of healing on the left mandibular area. Exposed bone without acute appearing wound deep on the posterior lingual gingiva in the same area. No bleeding or drainage. No facial swelling.) - Neck Neck: Supple, no meningeal sign - Respiratory Respiratory: No respiratory distress - Derm Derm: Warm and dry - Extremities Extremities: No deformity - Neuro Neuro: Alert and oriented X 3 - Psych Psych: Normal mood, Normal affect Results - Vitals Vitals: Vital Signs - 24 hr 01/23/24 08:06 Temperature 36.4 C L Heart Rate 101 H Respiratory 20 Rate Blood Pressure 155/111 H O2 Saturation 95 Oxygen O2 Source Room air PD Medical Decision Making - ED course Complexity details: reviewed old records, considered differential, d/w patient ED course: I discussed with the patient that he really needs to work as best he can with his oral surgery office to take care of all of this in the meantime. I will prescribe him some hydrocodone today, but I have asked him to call his oral surgery office back again to see if they can see him sooner or to see if they can come up with the pain management plan in the meantime. There is no evidence of infection at this point in time. Departure - Departure Disposition: 01 Home, Self Care Clinical Impression: Pain, dental Condition: Stable Instructions: ED Tooth Pain Prescriptions: HYDROcod/ACETAM 5/325 [[place] 5/325] 1 - 2 tablet PO Q6H PRN #20 tablet PRN Reason: Pain Comments: A prescription for your pain medications been electronically transmitted to the [facility] in [place]. Please pick this up and take as needed until you can see your oral surgeon. For further pain needs, you will need to work with your oral surgery office. You should take ibuprofen along with the prescribed pain medicine for maximum effect.
== END 2024-01-23 10:06 | disposition home or self-care (01) ==
LOC: ED 08:02
DX: K08.89 Other specified disorders of teeth and supporting structures (principal); Z79.899 Other long term (current) drug therapy; F17.200 Nicotine dependence, unspecified, uncomplicated
CPT/HCPCS: 99282; 99283